=== PATIENT | male | born 2000 | race Two or more races ===

== ENCOUNTER 2025-05-07 04:53 | Inpatient (IN) | payer MEDICAID, OTHER ==
[~2025-05-07] VITALS: Ht 167.6 cm; Wt 115.9 kg
--- NOTE | 2025-05-07 05:18 | ED.PDOC ---
History of Present Illness HPI Comments 24 M presented to the ER with a chief complaint of right-sided back pain for the past 3 days. 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 Reports skipping work on 05/05 secondary to pain, patient returned to work on 05/06 but experienced severe pain, pain is sharp and worsens with ambulation, right upper extremity movement including abduction. He denies fever, chills, nausea, vomiting, neck pain, photophobia, phonophobia, sensory or motor deficits at this time. Denies trauma or recent falls. Does report bilateral hands numbness and tingling, says that this is chronic and he has carpal tunnel syndrome. 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 Has right-sided paraspinal tenderness, no midline tenderness in cervical thoracic or lumbar spine. Chief Complaint: Back Pain Time Seen by MD: 05:04 Reviewed Notes: Nurses Notes Allergies: Coded Allergies: Ibuprofen (Verified Allergy, Unknown, 05/07/25) Iodine (Verified Allergy, Unknown, 05/07/25) Information Source: Patient, Relative (Mother) Mode of Arrival: Ambulatory Past Medical History Past Medical History (Other): Ameloblastoma, retinoblastoma Constitutional: denies: chills, diaphoresis, fatigue, fever, malaise, sweats, weakness, others EENTM: denies: blurred vision, double vision, ear bleeding, ear discharge, ear drainage, ear pain, ear ringing, eye pain, eye redness, hearing loss, mouth pain, mouth swelling, nasal discharge, nose bleeding, nose congestion, nose pain, photophobia, tearing, throat pain, throat swelling, voice changes, others Respiratory: denies: cough, hemoptysis, orthopnea, SOB at rest, shortness of breath, SOB with excertion, stridor, wheezing, others Cardiovascular: denies: chest pain, dizzy spells, diaphoresis, Dyspnea on exertion, edema, irregular heart beat, left arm pain, lightheadedness, palpitations, PND, syncope, others Gastrointestinal: denies: abdomen distended, abdominal pain, blood streaked bowels, constipated, diarrhea, dysphagia, difficulty swallowing, hematemesis, melena, nausea, poor appetite, poor fluid intake, rectal bleeding, rectal pain, vomiting, others Genitourinary: denies: burning, dysuria, flank pain, frequency, hematuria, incontinence, penile discharge, penile sore, pain, testicle pain, testicle swelling, urgency, others Neurological: denies: dizziness, fainting, headache, left sided numbness, left sided weakness, numbness, paresthesia, pre-existing deficit, right sided numbness, right sided weakness, seizure, speech problems, tingling, tremors, weakness, others Musculoskeletal: reports: back pain Integumetry: denies: bruises, change in color, change in hair/nails, dryness, laceration, lesions, lumps, rash, wounds, others Allergic/Immunocompromised: denies: Difficulty Healing, Frequent Infections, Hives, Itching, others Hematologic/Lymphatic: denies: anemia, blood clots, easy bleeding, easy bruising, swollen glands, others Endocrine: denies: excessive hunger, excessive sweating, excessive thirst, excessive urination, flushing, intolerance to cold, intolerance to heat, unexplained weight gain, unexplained weight loss, others Psychiatric: denies: anxiety, bipolar disorder, depression, hopeless, panic disorder, schizophrenia, sleepless, suicidal, others Physical Exam General Appearance: No Apparent Distress, Normal HEENT: NOT DONE Neck: NOT DONE Respiratory: No Accessory Muscle Use, No Respiratory Distress, Normal Breath Sounds Cardiovascular: No Edema, No Murmur, Regular Rate/Rhythm Breast Exam: Deferred Gastrointestinal: Non Tender, Normal Bowel Sounds Genitalia: Deferred Pelvic: Deferred Rectal: Deferred Extremities: NOT DONE Neurologic: Alert, No Motor Deficits, No Sensory Deficits Cerebellar Function: NOT DONE Reflexes: NOT DONE Skin: Dry Lymphatic: NOT DONE Was a procedure done? Was a procedure done?: No Differential Dx Considerations may include: Muscle sprain/vertebral disc herniation/compression fracture/musculoskeletal pain X-Ray, Labs, Meds, VS Vital Signs Date Time Temp Pulse Resp B/P (MAP) Pulse Ox O2 Delivery O2 Flow Rate FiO2 05/07/25 05:29 Room Air* 0 21 05/07/25 05:24 82 17 148/86 (106) 97 05/07/25 04:58 98.5 82 20 117/116 97 98.5 Current Medications Medications (Trade) Dose Ordered Sig/Adarsh Route Start Time Stop Time Status Last Admin Ketorolac Tromethamine (Toradol Injection) 30 mg ONCE ONCE IM 05/07/25 05:15 05/07/25 05:29 DC 05/07/25 05:35 Cyclobenzaprine HCl (Flexeril Tablet) 10 mg ONCE ONCE PO 05/07/25 05:15 05/07/25 05:19 DC 05/07/25 05:36 X-Ray, Labs, Meds, VS Comment Thoracic spine x-ray shows IMPRESSION: 1. Age-indeterminate mild anterior wedge compression deformities of the T8, T9 and T10 vertebral bodies. Images Reviewed?: Images reviewed and evaluated by me Time of 1ST Reevaluation: 06:00 Reevaluation 1ST: Improved (Pain has improved) Consultation: PCP Patient Education/Counseling: Diagnosis, Treatment Family Education/Counseling: Diagnosis, Treatment SEPSIS Sepsis Screen Date sepsis recognized/suspect: May 07, 2025 Time Sepsis recognized/suspect: 0501 Recent Procedure: No On Antibiotic Therapy: No Respiratory Rate >20: No Heart Rate >90: No Temp<36 C (96.8 F) or >38.3 C: No SBP <90 or MAP <65 mmHG: No New Acute Mental Status Change: No Is the patient on CPAP, BIPAP,: No Physician Orders Spine Thoracic 2view (05/07/25 05:14) Vital Signs Date Time Temp Pulse Resp B/P (MAP) Pulse Ox O2 Delivery O2 Flow Rate FiO2 05/07/25 05:29 Room Air* 0 21 05/07/25 05:24 82 17 148/86 (106) 97 05/07/25 04:58 98.5 82 20 117/116 97 98.5 Medications Medications Dose Ordered Sig/Adarsh Route Start Time Stop Time Status Last Admin Dose Admin Cyclobenzaprine HCl 10 mg ONCE ONCE PO 05/07/25 05:15 05/07/25 05:19 DC 05/07/25 05:36 Ketorolac Tromethamine 30 mg ONCE ONCE IM 05/07/25 05:15 05/07/25 05:29 DC 05/07/25 05:35 Departure 1 Departure Time of Disposition: 08:00 Impression: Primary Impression: Lumbar sprain Additional Impressions: Musculoskeletal pain Compression deformity of vertebra Disposition: 01 HOME / SELF CARE / HOMELESS Condition: Stable Discharged With: Self Comments Thoracic spine x-ray shows IMPRESSION: 1. Age-indeterminate mild anterior wedge compression deformities of the T8, T9 and T10 vertebral bodies. Patient will be admitted to this facility for further workup of back pain and compression deformities of the vertebral bodies, to rule out infectious and inflammatory causes, metabolic or systemic causes, neoplastic causes - given that the patient has a history of ameloblastoma of the jaw. Critical Care Note Critical Care Time?: No Stability Stability form required: UZMA Acosta RESIDENT May 07, 2025 05:18
[2025-05-07] MEDS: KETOROLAC TROMETH 60MG/2ML VIAL IM ONE (05:35)
[2025-05-07] MEDS: CYCLOBENZAPRINE HCL 10 MG TAB PO ONE (05:36)
[2025-05-07] MEDS ORDERED: CYCL-839 PO ×3 (06:06→16:09)
--- NOTE | 2025-05-07 06:30 | DVH ---
INDICATION: R sided backpain COMPARISON: None TECHNIQUE: 3 views of the thoracic spine were obtained. FINDINGS: The thoracic vertebral alignment is normal. The intervertebral disc spaces are well-maintained. No significant facet arthropathy is noted. There is an age-indeterminate mild anterior wedge compression deformity of the T8, T9 and T10 vertebr al bodies. The intervertebral disc spaces are maintained. The imaged thorax and abdomen are grossly unremarkable. IMPRESSION: 1. Age-indeterminate mild anterior wedge compression deformities of the T8, T9 and T10 vertebral bodi es.
[2025-05-07] MEDS ORDERED: ACETAMINOPHEN 325 MG TAB PO PRN (07:15)
[2025-05-07] MEDS ORDERED: ONDANSETRON HCL 4 MG/2 ML VIAL IV PRN (07:15)
[2025-05-07] MEDS ORDERED: HYDROcodone-ACET 5/325MG TAB PO PRN (07:15)
[2025-05-07] MEDS ORDERED: MORPHINE SULFATE INJ 2 MG/ml SYRG IV PRN (07:15)
--- NOTE | 2025-05-07 07:17 | DVHHP2 ---
History of Present Illness Reason for Visit: Right shoulder and back pain History of Present Illness Ray Castellanos is a 24-year-old male with past medical history of carpal tunnel syndrome, ameloblastoma, retinal blastoma, right mandible surgery, and marijuana use who presents to the ED with right shoulder and back pain x3 days. Patient reports that his pain is 10/10 tight and constant. He reports that movement makes the pain worse. 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 He reports that when he returned back to work he experience worsening severe sharp pain. Patient denies any recent trauma or injury, recent sick contacts, recent travel s, recent ingestion of spoiled food, chest pain, shortness of breath, fever, chills, lightheadedness, weakness, dizziness, abdominal pain, nausea, vomiting, diarrhea, or urinary symptoms. Past Medical History Carpal tunnel syndrome Ameloblastoma Retinoblastoma Past Surgical History: Other (Right mandible surgery) Family History: DM, Other (Mom with diabetes) Smoke: No ALCOHOL: none Drugs: Marijuana Lives: with Family Domestic Violence: Neg Review of Systems Musculoskeletal: back pain Allergies: Coded Allergies: Ibuprofen (Verified Allergy, Unknown, 05/07/25) Iodine (Verified Allergy, Unknown, 05/07/25) Exam Vital Signs Vital Signs Date Time Temp Pulse Resp B/P (MAP) Pulse Ox O2 Delivery O2 Flow Rate FiO2 05/07/25 05:29 Room Air* 0 21 05/07/25 05:24 82 17 148/86 (106) 97 05/07/25 04:58 98.5 98.5 General Appearance: Alert, Oriented X3, Cooperative, No acute distress HEENT: Atraumatic, PERRLA, EOMI, Mucous membr. moist/pink Respiratory: Normal air movement Cardiovascular: Regular rate, Normal S1, Normal S2 Abdominal: Normal bowel sounds, Soft Extremities: No clubbing, No cyanosis, Normal pulses Neuro: Normal gait, Normal speech, Normal tone, Sensation intact Psych/Mental Status: Mental status NL, Mood NL Labs/Xrays Labs Test 05/07/25 06:54 Range/Units INDICATION: R sided backpain COMPARISON: None TECHNIQUE: 3 views of the thoracic spine were obtained. FINDINGS: The thoracic vertebral alignment is normal. The intervertebral disc spaces are well-maintained. No significant facet arthropathy is noted. There is an age-indeterminate mild anterior wedge compression deformity of the T8, T9 and T10 vertebral bodies. The intervertebral disc spaces are maintained. The imaged thorax and abdomen are grossly unremarkable. IMPRESSION: 1. Age-indeterminate mild anterior wedge compression deformities of the T8, T9 and T10 vertebral bodies. EXAM: CT LS SPINE WO CONTRAST HISTORY: pain COMPARISON: None CTDIvol 38.58 mGy, DLP 2439.29 mGy*cm. TECHNIQUE: Multiple axial CT images of the spine were obtained using bone algorithm. Axial and coronal reformatting was done. Bone and soft tissue windows were reviewed. FINDINGS: No evidence of definite acute fracture, spinal dislocation, or significant appearing acute subluxation is seen. Moderate canal and bilateral foraminal stenosis at L4-L5 secondary to disc osteophyte hypertrophy. IMPRESSION: No definite CT evidence of acute fracture or dislocation of the bony lumbar spine. CLINICAL HISTORY: pain COMPARISON: None TECHNIQUE: Axial CT images of the cervical spine were obtained without IV contrast. Coronal and sagittal reformatted images were obtained. All CT scans at this medical facility are performed using dose modulation techniques as appropriate to a performed exam including the following: Automated exposure control was utilized; adjustment of the MA and/or KV according to patient size; and use of iterative reconstruction technique. CTDIvol = 38.58, 26.98, 0.48 mGy DLP = 2439.29 mGy-cm FINDINGS: Bones: Vertebral body alignment is within normal limits. Vertebral body heights are maintained. Posterior elements are intact. No acute fracture. Paraspinal soft tissues: Prevertebral and paraspinal soft tissues are unremarkable. Other: No other significant findings. Cervical disc levels: C2-C3: No significant disc/facet abnormality. No significant spinal canal or neural foraminal stenosis. C3-C4: No significant disc/facet abnormality. No significant spinal canal or neural foraminal stenosis. C4-C5: No significant disc/facet abnormality. No significant spinal canal or neural foraminal stenosis. C5-C6: No significant disc/facet abnormality. No significant spinal canal or neural foraminal stenosis. C6-C7: No significant disc/facet abnormality. No significant spinal canal or neural foraminal stenosis. C7-T1: No significant disc/facet abnormality. No significant spinal canal or neural foraminal stenosis. IMPRESSION: 1. No evidence of acute fracture or spondylolisthesis in the cervical spine. 2. No significant degenerative disc disease or facet/ uncinate disease demonstrated on CT. Correlate with clinical findings. If clinically indicated, MRI could be obtained to better characterize. CHEST RADIOGRAPH Indication: r/o pna Technique: Single frontal view of the chest was obtained Comparison: XR CHEST 1 VIEW on DOS: 09/19/24 FINDINGS: Lines and Tubes: None Lungs: No focal consolidation. Pleura: No effusion. No pneumothorax. Cardiomediastinal contours: Unremarkable Bones: No acute osseous abnormality. IMPRESSION: 1. No acute cardiopulmonary disease. SEPSIS Sepsis Screen Date sepsis recognized/suspect: May 07, 2025 Time Sepsis recognized/suspect: 0501 Recent Procedure: No On Antibiotic Therapy: No Respiratory Rate >20: No Heart Rate >90: No Temp<36 C (96.8 F) or >38.3 C: No SBP <90 or MAP <65 mmHG: No New Acute Mental Status Change: No Is the patient on CPAP, BIPAP,: No Physician Orders Spine Thoracic 2view (05/07/25 05:14) Complete Blood Count (05/07/25 06:40) Comprehensive Metabolic Panel (05/07/25 06:40) Erythrocyte Sedimentation Rate (05/07/25 06:40) C-Reactive Protein (05/07/25 06:40) Vital Signs Date Time Temp Pulse Resp B/P (MAP) Pulse Ox O2 Delivery O2 Flow Rate FiO2 05/07/25 05:29 Room Air* 0 21 05/07/25 05:24 82 17 148/86 (106) 97 05/07/25 04:58 98.5 82 20 117/116 97 98.5 Laboratory Tests Test 05/07/25 06:54 White Blood Count Pending Medications Medications Dose Ordered Sig/Adarsh Route Start Time Stop Time Status Last Admin Dose Admin Cyclobenzaprine HCl 10 mg ONCE ONCE PO 05/07/25 05:15 05/07/25 05:19 DC 05/07/25 05:36 10 MG Ketorolac Tromethamine 30 mg ONCE ONCE IM 05/07/25 05:15 05/07/25 05:29 DC 05/07/25 05:35 30 MG Assessment/Plan Assessment/Plan Assessment Intractable back pain unrelieved with p.o. medications, likely sprain versus strain Age-indeterminate mild anterior wedge compression deformities of the T8, T9 and T10 vertebral bodies. 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 History of carpal tunnel syndrome Plan Admit to med surge Antiemetics Pain management X-ray noted CT lumbar spine CT cervical spine CRP ESR IV antibiotics-ceftriaxone Blood alcohol Lactic UA UDS Chest x-ray IV morphine Diet Per patient no home medications DVT prophylaxis-SCDs PUD prophylaxis-not indicated history of GERD or GI bleed Discussed plan of care with patient and nurse Counseled patient on cessation of marijuana use [id number] Behavior change smoking greater than 10 minutes about use of other options also gave option of nicotine patch [id number] Preventive counseling healthy eating habits, physical activity, and regular checkups Plan discussed with: Patient Date of Service: May 07, 2025 Billing Provider: ARAMIS ESCALANTE Common Visit Codes: 15002-[id number] INP/OBS CARE (HIGH) Secondary Visit Codes: [id number] COUNSELING IND, [id number] CHNG SMOKING >10MIN ARAMIS ESCALANTE May 07, 2025 07:17
[2025-05-07 07:26] LABS: Hematocrit 47.4 % (41.0-53.0); Hemoglobin 16.2 g/dL (13.5-17.5); Mean Corpuscular Hemoglobin 31.5 pg (28.0-32.0); Mean Corpuscular Volume 92.2 fL (80.0-100.0); Nucleated Red Blood Cells % 0.1 %
[2025-05-07 07:38] LABS: Alkaline Phosphatase 78 U/L (46-116); Anion Gap 8 (5-15); BUN/Creatinine Ratio 12.5 (10.0-20.0); Blood Urea Nitrogen 9 mg/dL (9-23); Calcium 9.7 mg/dL (8.7-10.4); Carbon Dioxide 28 mmol/L (20-31); Chloride 103 mmol/L (98-107); Potassium 3.8 mmol/L (3.5-5.1); Sodium 139 mmol/L (136-145); Total Protein 8.1 g/dL (5.7-8.2)
[2025-05-07 07:40] LABS: Alanine Aminotransferase 40 U/L (7-40); Albumin 5.1 g/dL (3.2-4.8); Bilirubin, Total 2.3 mg/dL (0.2-1.0); Glucose 115 mg/dL (74-106)
--- NOTE | 2025-05-07 08:19 | DVH ---
CLINICAL HISTORY: pain COMPARISON: None TECHNIQUE: Axial CT images of the cervical spine were obtained without IV contrast. Coronal and sagit sheldon reformatted images were obtained. All CT scans at this medical facility are performed using dose modulation techniques as appropriate to a performed exam including the following: Automated exposure control was utilized; adjustment of the MA and/or KV according to patient size; and use of iterative reconstruction technique. CTDIvol = 38.58, 26.98, 0.48 mGy DLP = 2439.29 mGy-cm FINDINGS: Bones: Vertebral body alignment is within normal limits. Vertebral body heights are maintained. Poste rior elements are intact. No acute fracture. Paraspinal soft tissues: Prevertebral and paraspinal soft tissues are unremarkable. Other: No other significant findings. Cervical disc levels: C2-C3: No significant disc/facet abnormality. No significant spinal canal or neural foraminal stenosi s. C3-C4: No significant disc/facet abnormality. No significant spinal canal or neural foraminal stenosi s. C4-C5: No significant disc/facet abnormality. No significant spinal canal or neural foraminal stenosi s. C5-C6: No significant disc/facet abnormality. No significant spinal canal or neural foraminal stenosi s. C6-C7: No significant disc/facet abnormality. No significant spinal canal or neural foraminal stenosi s. C7-T1: No significant disc/facet abnormality. No significant spinal canal or neural foraminal stenosi s. IMPRESSION: 1. No evidence of acute fracture or spondylolisthesis in the cervical spine. 2. No significant degenerative disc disease or facet/ uncinate disease demonstrated on CT. Correlate with clinical findings. If clinically indicated, MRI could be obtained to better characterize.
--- NOTE | 2025-05-07 08:20 | DVH ---
CHEST RADIOGRAPH Indication: r/o pna Technique: Single frontal view of the chest was obtained Comparison: XR CHEST 1 VIEW on DOS: 09/19/24 FINDINGS: Lines and Tubes: None Lungs: No focal consolidation. Pleura: No effusion. No pneumothorax. Cardiomediastinal contours: Unremarkable Bones: No acute osseous abnormality. IMPRESSION: 1. No acute cardiopulmonary disease.
--- NOTE | 2025-05-07 08:57 | DVH ---
EXAM: CT LS SPINE WO CONTRAST HISTORY: pain COMPARISON: None CTDIvol 38.58 mGy, DLP 2439.29 mGy*cm. TECHNIQUE: Multiple axial CT images of the spine were obtained using bone algorithm. Axial and green l reformatting was done. Bone and soft tissue windows were reviewed. FINDINGS: No evidence of definite acute fracture, spinal dislocation, or significant appearing acute subluxatio n is seen. Moderate canal and bilateral foraminal stenosis at L4-L5 secondary to disc osteophyte hypertrophy. IMPRESSION: No definite CT evidence of acute fracture or dislocation of the bony lumbar spine.
[2025-05-07 10:32] VITALS: BP 145/79; PULSE 64; RESP 14; TEMP 98; O2SAT 96
--- NOTE | 2025-05-07 11:30 | DVHINCON2 ---
Consultation - Surgical Date Seen: May 07, 2025 Referring Physician Referring Physician Attending Doctor: Gloria Pritchett [facility] Reason for Consultation Reason for Visit: Right shoulder and back pain History of Present Illness History of Present Illness History of Present Illness Ray Castellanos is a 24-year-old male with past medical history of carpal tunnel syndrome, ameloblastoma, retinal blastoma, right mandible surgery, and marijuana use who presents to the ED with right shoulder and back pain x3 days. Patient reports that his pain is 10/10 tight and constant. He reports that movement makes the pain worse. 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 He reports that when he returned back to work he experience worsening severe sharp pain. Patient denies any recent trauma or injury, recent sick contacts, recent travels, recent ingestion of spoiled food, chest pain, shortness of breath, fever, chills, lightheadedness, weakness, dizziness, abdominal pain, nausea, vomiting, diarrhea, or urinary symptoms. Past Medical/Surgical History Past Medical/Surgical History Past Medical History Carpal tunnel syndrome Ameloblastoma Retinoblastoma Past Surgical History: Other (Right mandible surgery) Family and Social History Family and Social History Family History: DM, Other (Mom with diabetes) Smoke: No ALCOHOL: none Drugs: Marijuana Lives: with Family Domestic Violence: Neg Allergies and medications Allergies: Coded Allergies: Ibuprofen (Verified Allergy, Unknown, 05/07/25) Iodine (Verified Allergy, Unknown, 05/07/25) Home Meds Active Scripts Cyclobenzaprine Hcl (Cyclobenzaprine Hcl) 10 Mg Tab, 10 MG PO BID for 5 Days, #30 TAB 0 Refills Use twice daily for 5 days, extra tablets can be used daily, maximum use 3 times daily Prov:CRISTINA CASTANEDA MD 05/07/25 Prednisone (Prednisone) 20 Mg Tab, 40 MG PO DAILY for 5 Days, #10 MG 0 Refills Prov:CRISTINA CASTANEDA MD 05/07/25 Review of systems Review of Systems: MSK:Normal, NEURO:Normal (PAIN TO LOW BACK 5/5 TO ALL EXTR EMITIES) Examination Vital signs Imaging EXAM: CT LS SPINE WO CONTRAST HISTORY: pain COMPARISON: None CTDIvol 38.58 mGy, DLP 2439.29 mGy*cm. TECHNIQUE: Multiple axial CT images of the spine were obtained using bone algorithm. Axial and coronal reformatting was done. Bone and soft tissue windows were reviewed. FINDINGS: No evidence of definite acute fracture, spinal dislocation, or significant appearing acute subluxation is seen. Moderate canal and bilateral foraminal stenosis at L4-L5 secondary to disc osteophyte hypertrophy. IMPRESSION: No definite CT evidence of acute fracture or dislocation of the bony lumbar spine. ICAL HISTORY: pain COMPARISON: None TECHNIQUE: Axial CT images of the cervical spine were obtained without IV contrast. Coronal and sagittal reformatted images were obtained. All CT scans at this medical facility are performed using dose modulation techniques as appropriate to a performed exam including the following: Automated exposure control was utilized; adjustment of the MA and/or KV according to patient size; and use of iterative reconstruction technique. CTDIvol = 38.58, 26.98, 0.48 mGy DLP = 2439.29 mGy-cm FINDINGS: Bones: Vertebral body alignment is within normal limits. Vertebral body heights are maintained. Posterior elements are intact. No acute fracture. Paraspinal soft tissues: Prevertebral and paraspinal soft tissues are unremarkable. Other: No other significant findings. Cervical disc levels: C2-C3: No significant disc/facet abnormality. No significant spinal canal or neural foraminal stenosis. C3-C4: No significant disc/facet abnormality. No significant spinal canal or neural foraminal stenosis. C4-C5: No significant disc/facet abnormality. No significant spinal canal or neural foraminal stenosis. C5-C6: No significant disc/facet abnormality. No significant spinal canal or neural foraminal stenosis. C6-C7: No significant disc/facet abnormality. No significant spinal canal or neural foraminal stenosis. C7-T1: No significant disc/facet abnormality. No significant spinal canal or neural foraminal stenosis. IMPRESSION: 1. No evidence of acute fracture or spondylolisthesis in the cervical spine. 2. No significant degenerative disc disease or facet/ uncinate disease demonstrated on CT. Correlate with clinical findings. If clinically indicated, MRI could be obtained to better characterize. SSION #: [id number] INDICATION: R sided backpain COMPARISON: None TECHNIQUE: 3 views of the thoracic spine were obtained. FINDINGS: The thoracic vertebral alignment is normal. The intervertebral disc spaces are well-maintained. No significant facet arthropathy is noted. There is an age-indeterminate mild anterior wedge compression deformity of the T8, T9 and T10 vertebral bodies. The intervertebral disc spaces are maintained. The imaged thorax and abdomen are grossly unremarkable. IMPRESSION: 1. Age-indeterminate mild anterior wedge compression deformities of the T8, T9 and T10 vertebral bodies. Vital Signs Date Time Temp Pulse Resp B/P (MAP) Pulse Ox O2 Delivery O2 Flow Rate FiO2 05/07/25 10:32 98.0 64 14 145/79 (101) 96 98.0 05/07/25 05:29 Room Air* 0 21 Medications Current Medications Medications (Trade) Dose Ordered Sig/Adarsh Route PRN Reason Start Time Stop Time Status Last Admin Acetaminophen/ Hydrocodone Bitart ([place] 5/325MG Tab) 1 tab Q4HP PRN PO MODERATE PAIN (4-6 PAIN SCALE) 05/07/25 07:15 Ondansetron HCl (Zofran) 4 mg Q4HP PRN IV NAUSEA / VOMITING 05/07/25 07:15 Acetaminophen (Tylenol Tablet) 650 mg Q6HP PRN PO PAIN SCALE 1-3 OR TEMP>100.4 05/07/25 07:15 Morphine Sulfate 2 mg Q4HPRN PRN IV SEVERE PAIN (7-10 PAIN SCALE) 05/07/25 07:15 Ceftriaxone Sodium 50 ml @ 100 mls/hr DAILY@09 IV 05/07/25 09:00 Laboratory Labs Test 05/07/25 06:54 Range/Units White Blood Count 11.2 H 4.4-10.8 10^3/uL Red Blood Count 5.14 4.5-5.90 10^6/uL Hemoglobin 16.2 13.5-17.5 g/dL Hematocrit 47.4 41.0-53.0 % Mean Corpuscular Volume 92.2 80.0-100.0 fL Mean Corpuscular Hemoglobin 31.5 28.0-32.0 pg Mean Corpuscular Hemoglobin Concent 34.2 32.0-36.0 g/dL Red Cell Distribution Width 16.9 H 11.8-14.3 % Platelet Count 256 140-450 10^3/uL Mean Platelet Volume 8.9 6.9-10.8 fL Neutrophils (%) (Auto) 73.1 37.0-80.0 % Lymphocytes (%) (Auto) 17.0 10.0-50.0 % Monocytes (%) (Auto) 6.9 0.0-12.0 % Eosinophils (%) (Auto) 2.1 0.0-7.0 % Basophils (%) (Auto) 0.9 0.0-2.0 % Neutrophils # (Auto) 8.2 1.6-8.6 10 ^3/uL Lymphocytes # (Auto) 1.9 0.4-5.4 10 ^3/uL Monocytes # (Auto) 0.8 0-1.3 10 ^3/uL Eosinophils # (Auto) 0.2 0-0.8 10 ^3/uL Basophils # (Auto) 0.1 0-0.2 10 ^3/uL Nucleated Red Blood Cells 0.1 % Erythrocyte Sedimentation Rate 6 0-20 mm/hr Sodium Level 139 136-145 mmol/L Potassium Level 3.8 3.5-5.1 mmol/L Chloride Level 103 98-107 mmol/L Carbon Dioxide Level 28 20-31 mmol/L Anion Gap 8 5-15 Blood Urea Nitrogen 9 9-23 mg/dL Creatinine 0.72 0.700-1.30 mg/dL Glomerular Filtration Rate Calc 129 >90 mL/min BUN/Creatinine Ratio 12.5 10.0-20.0 Serum Glucose 115 H 74-106 mg/dL Calcium Level 9.7 8.7-10.4 mg/dL Total Bilirubin 2.3 H 0.2-1.0 mg/dL Aspartate Amino Transferase (AST) 37 13-40 U/L Alanine Aminotransferase (ALT) 40 7-40 U/L Alkaline Phosphatase 78 46-116 U/L C-Reactive Protein High Sensitivity 1.31 H <1.0 mg/dL Total Protein 8.1 5.7-8.2 g/dL Albumin 5.1 H 3.2-4.8 g/dL Examination: GENERAL:Normal, HEENT:Normal, NECK:Normal, LUNGS:Normal, CVS:Normal, ABDOMEN:Normal, MSK:Normal, SKIN:Normal, NEURO:Normal (MARR 5/5, lbp), :Normal Problem List/Assessment/Plan Problems: (1) Compression deformity of vertebra (2) Musculoskeletal pain (3) Lumbar sprain Assessment and Plan age-indeterminate mild anterior wedge compression deformity of the T8, T9 and T10 vertebral bodies Moderate canal and bilateral foraminal stenosis at L4-L5 secondary to disc osteophyte hypertrophy Neither of these finds require emergent spine surgery Continue care and support per admitting team's discretion Physical therapy evaluation, treatment recommendations and safe discharge planning recommendations Effective pain management including muscle relaxers if the patient is complaining of muscle spasms Discussed treatment options with the patient, patient should see his primary care doctor for physical therapy enrollment. If the pain is too great for physical therapy then he needs to start with pain management to get the pain under control and then refer back to physical therapy. If both modalities fail to supply any relief for the patient then his PCP can file a spine surgery referral for evaluation. Conservative management is the recommended course of treatment at this time No discharge barriers from a spine surgery perspective once the patient's pain is under control and physical therapy has determined that he is safe to discharge from an ambulatory status Call with kristy Dodge [facility] Orthopaedic Spine Surgery nurse practitioner For Dr Kaci Josue Patient was examined, chart reviewed, labs evaluated, and diagnostic studies and findings analyzed. Case was discussed with Dr. Richard Josue who formulated the plan of care. This medical document was created using an electronic medical record system with [employer] dictation system. Although this document has been carefully reviewed, there might still be some phonetic and typographical errors. These areas are purely typographical due to imperfections of the software programs, and do not reflect any compromise in the patient's medical care. Plan discussed with Plan discussed with: Patient, Other Visit Coding Surgery Date of Service if different f: May 07, 2025 Billing Provider: LIANE DODGE NP Surgery Visit Codes: 21057 - INP CONSULT <55 MIN LIANE DODGE NP May 07, 2025 11:30
[2025-05-07 12:50] VITALS: BP 160/89; PULSE 57; RESP 16; TEMP 97.9; O2SAT 98
[2025-05-07] MEDS ORDERED: PRED20TA2 PO (16:08)
--- NOTE | 2025-05-07 16:11 | DVHDS2 ---
Discharge Summary Date of Admission May 07, 2025 at 07:15 Date of Discharge: May 07, 2025 Labs/Diagnostic Data: Laboratory Results Test 05/07/25 06:54 White Blood Count 11.2 10^3/uL (4.4-10.8) Red Blood Count 5.14 10^6/uL (4.5-5.90) Hemoglobin 16.2 g/dL (13.5-17.5) Hematocrit 47.4 % (41.0-53.0) Mean Corpuscular Volume 92.2 fL (80.0-100.0) Mean Corpuscular Hemoglobin 31.5 pg (28.0-32.0) Mean Corpuscular Hemoglobin Concent 34.2 g/dL (32.0-36.0) Red Cell Distribution Width 16.9 % (11.8-14.3) Platelet Count 256 10^3/uL (140-450) Mean Platelet Volume 8.9 fL (6.9-10.8) Neutrophils (%) (Auto) 73.1 % (37.0-80.0) Lymphocytes (%) (Auto) 17.0 % (10.0-50.0) Monocytes (%) (Auto) 6.9 % (0.0-12.0) Eosinophils (%) (Auto) 2.1 % (0.0-7.0) Basophils (%) (Auto) 0.9 % (0.0-2.0) Neutrophils # (Auto) 8.2 10 ^3/uL (1.6-8.6) Lymphocytes # (Auto) 1.9 10 ^3/uL (0.4-5.4) Monocytes # (Auto) 0.8 10 ^3/uL (0-1.3) Eosinophils # (Auto) 0.2 10 ^3/uL (0-0.8) Basophils # (Auto) 0.1 10 ^3/uL (0-0.2) Nucleated Red Blood Cells 0.1 % Erythrocyte Sedimentation Rate 6 mm/hr (0-20) Sodium Level 139 mmol/L (136-145) Potassium Level 3.8 mmol/L (3.5-5.1) Chloride Level 103 mmol/L (98-107) Carbon Dioxide Level 28 mmol/L (20-31) Anion Gap 8 (5-15) Blood Urea Nitrogen 9 mg/dL (9-23) Creatinine 0.72 mg/dL (0.700-1.30) Glomerular Filtration Rate Calc 129 mL/min (>90) BUN/Creatinine Ratio 12.5 (10.0-20.0) Serum Glucose 115 mg/dL (74-106) Calcium Level 9.7 mg/dL (8.7-10.4) Total Bilirubin 2.3 mg/dL (0.2-1.0) Aspartate Amino Transferase (AST) 37 U/L (13-40) Alanine Aminotransferase (ALT) 40 U/L (7-40) Alkaline Phosphatase 78 U/L (46-116) C-Reactive Protein High Sensitivity 1.31 mg/dL (<1.0) Total Protein 8.1 g/dL (5.7-8.2) Albumin 5.1 g/dL (3.2-4.8) Plasma/Serum Blood Alcohol < 3.0 mg/dL (<10) Other Laboratory Tests 05/07/25 06:54 Brief Hx & Hospital Course: Ray Castellanos is a 24-year-old male with past medical history of carpal tunnel syndrome, ameloblastoma, retinal blastoma, right mandible surgery, and marijuana use who presents to the ED with right shoulder and back pain x3 days. Patient reports that his pain is 10/10 tight and constant. He reports that movement makes the pain worse. 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 He reports that when he returned back to work he experience worsening severe sharp pain. Patient denies any recent trauma or injury, recent sick contacts, recent travels, recent ingestion of spoiled food, chest pain, shortness of breath, fever, chills, lightheadedness, weakness, dizziness, abdominal pain, nausea, vomiting, diarrhea, or urinary symptoms. Past Medical History ?Carpal tunnel syndrome (patient self diagnosed) 05/07: Patient T-spine showing wedge compression fracture possible, C-spine L- spine without any acute abnormalities. Spinal consult was placed, spinal team recommends muscle relaxants, with PT, otherwise outpatient follow up.. On exam patient has no shoulder abnormalities, significant pain in region above right scapula, likely musculoskeletal origin of pain. No indication for inpatient stay, patient we will have to follow up with PCP outpatient. We will do trial of muscle relaxants, prednisone (per patient he has von Willebrand's and has been told by a physician primary that he can not take NSAIDs/ibuprofen), OT referral,. Patient otherwise stable for discharge. Diagnosis: T-spine which compression fractures, possible, chronic Intractable back pain,, due to above Age-indeterminate mild anterior wedge compression deformities of the T8, T9 and T10 vertebral bodies. 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 scheduled flexiril morning and night x5days) - prednisone 40 daily (2 tablets daily), take for 5 days - referral to OT - Continue other home medications - Follow up with PCP to review discharge and to follow up on symptoms - work note , off until monday, resume work monday. after 5 days, use flexiril only nightly if needed otherwise can cause significant drowsiness during daytime. Condition at Discharge: Fair Final Diagnosis/Problems List T-spine which compression fractures, possible, chronic Intractable back pain,, due to above Age-indeterminate mild anterior wedge compression deformities of the T8, T9 and T10 vertebral bodies. 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 Patient was counseled about treatment plan, medications, possible side effects, patientverbalized understanding. All questions were answered to the best of my ability. This discharge took greater then 30 minutes in planning, reviewing documentation, counseling the patient, and discussing with other team members." ASSESSMENT ASSESSMENT Assessment Date of Service: May 07, 2025 Billing Provider: CRISTINA CASTANEDA MD Common Visit Codes: 79306-QTS/OBS DISCH DAY >30min CRISTINA CASTANEDA MD May 07, 2025 16:11
[2025-05-07 17:14] VITALS: TEMP 36.6
== END 2025-05-07 17:55 | disposition home or self-care (01) | DRG 347 ==
LOC: ER 04:53 → OVERFLOW 07:15
PROVIDERS: ADMIT Student in an Organized Health Care Education/Training Program; ATTEND Student in an Organized Health Care Education/Training Program
DX: M48.54XA Collapsed vertebra, not elsewhere classified, thoracic region, initial encounter for fracture (principal); D72.829 Elevated white blood cell count, unspecified; S33.5XXA Sprain of ligaments of lumbar spine, initial encounter; E66.01 Morbid (severe) obesity due to excess calories; M25.78 Osteophyte, vertebrae; M48.061 Spinal stenosis, lumbar region without neurogenic claudication; E80.6 Other disorders of bilirubin metabolism; M43.8X4 Other specified deforming dorsopathies, thoracic region; G56.00 Carpal tunnel syndrome, unspecified upper limb; Z79.899 Other long term (current) drug therapy; Z88.6 Allergy status to analgesic agent; Z83.3 Family history of diabetes mellitus; Z85.840 Personal history of malignant neoplasm of eye; X58.XXXA Exposure to other specified factors, initial encounter; Y93.89 Activity, other specified; Y92.89 Other specified places as the place of occurrence of the external cause; Y99.8 Other external cause status
CPT/HCPCS: 36415; 71045; 72070; 72125; 72131; 80053; 80320; 85025; 85652; 86141; 96372; G0378; J1885